=== PATIENT | male | born 1960 | race Caucasian/White ===

== ENCOUNTER 2019-02-01 06:08 | Day surgery (SDC) | payer OTHER ==
[~2019-02-01] VITALS: Ht 167.6 cm; Wt 78.2 kg
[~2019-02-01 06:08] MED LIST: CELEBREX 100 M100 MG PO; PRILOSEC20 MG PO; WELLBUTRIN75 MG PO
[2019-02-01 06:38] VITALS: Ht 167.6 cm; Wt 78.2 kg
--- NOTE | 2019-02-01 08:40 | NUR ---
0837 IV DC'D. CATHETER TIP INTACT. NO BLEEDING AT SITE. BANDAID APPLIED.
--- NOTE | 2019-02-03 16:44 | OP ---
PATIENT NAME: CANDACE EVANS MEDICAL RECORD: [id number] :56 [facility] DATE: SURGEON: JEANNINE POP DO DATE OF OPERATION: 02/01/2019 PROCEDURE: EGD with biopsies. INDICATIONS FOR PROCEDURE: History of Lindo's esophagus. This is a 2-year recall. The patient also reports some reflux and heartburn. SCOPE: Olympus video gastroscope. MEDICATIONS: Propofol 150 mg IV per anesthesia. ESTIMATED BLOOD LOSS: Minimal. COMPLICATIONS: None. FINDINGS: Informed consent was given. The patient was made comfortable with the above medication. After reaching an adequate level of sedation by slow IV push, the patient was placed on his left side. The endoscope was advanced under direct visualization through the mouth to the second portion of the duodenum. The entire esophagus appeared normal down to the GE junction. Random cold forceps biopsies were taken from the mid esophagus to rule out the presence of eosinophils. At the GE junction, there was evidence of LA class B reflux-induced esophagitis and possible Lindo's mucosa. Cold forceps biopsies were taken around the squamocolumnar junction. The endoscope was advanced through the GE junction into the stomach and retroflexed to view the cardia and fundus, which appeared normal. The body and antrum of the stomach also appeared normal. Random cold forceps biopsies were taken from the antrum and incisura to rule out the presence of H. pylori and to submit for histopathology. The endoscope was advanced beyond the pylorus into the duodenum, which appeared normal down to the second portion. The endoscope was then withdrawn from the patient. The patient tolerated the procedure well and there were no complications. IMPRESSION: 1. LA class B reflux-induced esophagitis and possible Lindo's mucosa at the gastroesophageal junction. 2. Otherwise, normal esophagogastroduodenoscopy. PLAN AND RECOMMENDATIONS: 1. Discharge home when recovery parameters are met. 2. Follow up biopsy specimen results. 3. GERD diet and reflux precautions. 4. Continue current medications. 5. Recall EGD will be dependent on results of biopsies taken today. TRANSINT:[id number] Voice Confirmation ID: [id number] DOCUMENT ID: [id number] OPERATIVE REPORT [id number] CANDACE EVANS JEANNINE POP DO at 1644 CC: [id number] DICTATION DATE: 02/01/1909 COMMUNICATIONS TECHNOLOGIST: 02/01/19 1039 [facility] 02/01/19 [facility] [address] [facility] [place] [address]
== END 2019-02-01 08:49 | disposition home or self-care (01) ==
LOC: D.OPS 06:08
PROVIDERS: ATTEND Internal Medicine Gastroenterology
DX: K21.0 Gastro-esophageal reflux disease with esophagitis (principal); K22.70 Barrett's esophagus without dysplasia; R12 Heartburn

== ENCOUNTER 2019-02-15 08:18 | Day surgery (SDC) | payer OTHER ==
[~2019-02-15] VITALS: Ht 167.6 cm; Wt 78.2 kg
[2019-02-15 09:23] VITALS: BP 128/70; Ht 167.6 cm; Wt 78.2 kg
--- NOTE | 2019-02-15 10:55 | NUR ---
IV DC'D. CATHETER TIP INTACT. NO BLEEDING AT SITE. BANDAID APPLIED.
--- NOTE | 2019-02-17 09:54 | OP ---
PATIENT NAME: CANDACE EVANS MEDICAL RECORD: [id number] :56 LOCATION:[facility] ADMISSION DATE: SURGEON: JEANNINE POP DO DATE OF OPERATION: 02/15/2019 PROCEDURE: Colonoscopy. INDICATIONS FOR PROCEDURE: Family history of malignant neoplasms of the patient's sister and a personal history of colon polyps. SCOPE: Olympus video pediatric colonoscope. MEDICATIONS: Propofol 350 mg IV per anesthesia. ESTIMATED BLOOD LOSS: None. COMPLICATIONS: None. FINDINGS: Informed consent was given. The patient was made comfortable with the above medication. After reaching an adequate level of sedation by slow IV push, the patient was placed on his left side. A digital rectal examination was performed and revealed grade III hemorrhoids without bleeding. The endoscope was advanced under direct visualization through the rectum to the cecum, confirmed by the presence of the appendiceal orifice and ileocecal valve. The endoscope was slowly withdrawn and mucosa was carefully examined. The prep quality was good. There were no polyps visualized on today's examination. The patient does have pandiverticulosis with the majority of diverticula in severity, greatest in the distal descending and sigmoid colon. Retroflexion was performed in the rectum with visualization of grade III hemorrhoids. The endoscope was withdrawn from the patient. The patient tolerated the procedure well and there were no complications. IMPRESSION: 1. Pandiverticulosis. 2. Grade III hemorrhoids without bleeding. PLAN AND RECOMMENDATIONS: 1. Discharge home when recovery parameters are met. 2. High fiber diet. 3. Continue current medications. 4. Recall colonoscopy in 5 years for further surveillance based on a personal history of colon polyps and family history of malignant neoplasm. TRANSINT:[id number] Voice Confirmation ID: [id number] DOCUMENT ID: [id number] JEANNINE POP DO at 0954 CC: [id number] DICTATION DATE: 02/15/19 1010 [employer] DRIVER: 02/15/19 1034 [facility] 02/15/[address] [id number]
== END 2019-02-15 11:02 | disposition home or self-care (01) ==
LOC: D.OPS 08:18
PROVIDERS: ATTEND Internal Medicine Gastroenterology
DX: Z86.010 Personal history of colon polyps (principal); K64.2 Third degree hemorrhoids; K57.90 Diverticulosis of intestine, part unspecified, without perforation or abscess without bleeding